=== PATIENT | female | born 1980 | race Caucasian/White ===

== ENCOUNTER 2020-06-15 20:24 | Inpatient (IN) | payer MEDICAID ==
[~2020-06-15] VITALS: Ht 152.4 cm; Wt 82.6 kg
[2020-06-15 20:40] VITALS: Ht 152.4 cm; Wt 82.6 kg
--- NOTE | 2020-06-15 21:05 | NUR ---
PT PRESENTED TO ED WITH 10/10 ABDOMINAL PAIN SINCE APPROX 3 PM TODAY. PT DENIES ANY DIARRHEA, OR CONSTIPATION. PAIN STATES SHE HAS VOMITTED MULTIPLE TIMES TODAY. PT IS NOTED TO BE TOSSING AROUND ON GURNEY AND MOANING IN PAIN. PT AWAITING MSE AT THIS TIME.
[2020-06-15 22:06] LABS: BASOPHIL % 0.1 % (0-2); PLATELET COUNT 382 x10^3mcL (130-400); RED CELL DISTRIBUTION WIDTH 20.8 % (11.5-14.5)
[2020-06-15 22:08] LABS: CALCIUM 8.9 mg/dL (8.5-10.1); CARBON DIOXIDE 24.7 mmol/L (21-32); CHLORIDE SERUM 100 mmol/L (98-107); CREATININE SERUM 0.7 mg/dL (0.6-1.0); GFR1 > 60 mL/min; GLUCOSE SERUM 139 mg/dL (74-106); POTASSIUM SERUM 3.8 mmol/L (3.5-5.1); SODIUM SERUM 136 mmol/L (136-145)
[2020-06-15 22:11] LABS: ALBUMIN 3.9 g/dL (3.4-5.0); ALKALINE PHOSPHATASE 96 U/L (46-116); ALT/SGPT 32 U/L (14-59); AST/SGOT 19 U/L (15-37); BILIRUBIN TOTAL 0.3 mg/dL (0.20-1.00); LIPASE 89 IU/L (73-393); TOTAL PROTEIN, SERUM 7.7 g/dL (6.4-8.2)
[2020-06-15 22:13] LABS: UA SPECIFIC GRAVITY >=1.030 (1.005-1.035); microscopic required? YES; urine erythrocyte 2+ (NEGATIVE)
[2020-06-15 22:57] LABS: ovalocyte/elliptocyte 2+; rbc morphology (normal/abnorm) ABNORMAL (NORMAL); tear drop cell (dacryocyte) 2+
--- NOTE | 2020-06-16 00:05 | NUR ---
PT A&OX4 WITH E/U BREATHS. NO ACD NOTED. PT MEDICATED WITH ZOSYN PER MD ORDER, SEE EMAR. PT ALSO FREDDY GOLD SWABBED AND TAKEN TO RADIOLOGY VIA [facility].
[2020-06-16] MEDS ORDERED: ATORVASTATIN CA10 M1 (00:18)
[2020-06-16] MEDS ORDERED: GLIPIZIDE XL2.5 M1 (00:18)
[2020-06-16] MEDS ORDERED: IBU400 M2 (00:18)
[2020-06-16] MEDS ORDERED: FORTAMET500 M1 (00:18)
[2020-06-16 00:29] LABS: CHOLESTEROL/HDL RATIO 4.3; MAGNESIUM 1.6 mg/dL (1.8-2.4); PHOSPHOROUS 3.9 mg/dL (2.5-4.9)
[2020-06-16 00:31] LABS: AMPHETAMINE QUAL UR NONE DETECTED (See below)
[2020-06-16 00:33] LABS: T3 TOTAL 1.24 ng/mL
[2020-06-16 00:40] LABS: FREE T4 0.86 ng/dL (0.76-1.46); FREE THYROXINE INDEX 2.8 ug/dL (1.4-4.5)
--- NOTE | 2020-06-16 01:35 | NUR ---
PT A&OX4 WITH E/U BREATHS, REPORTS INTERMITTENT 4/10 PAIN.
--- NOTE | 2020-06-16 03:05 | NUR ---
PT A&OX4 WITH E/U BREATHS, NOTED IN POC, LOW FOWLERS POSITION. PT REPORTS 4/10 PAIN ONLY UPON REPOSITIONING.
--- NOTE | 2020-06-16 03:12 | NUR ---
GAVE REPORT TO BUZZ LOVING TO ASSUME CARE OF PATIENT.
--- NOTE | 2020-06-16 03:41 | NUR ---
PT TRANSFERRED TO MED SURG VIA GURNEY BY MONICA STOUT WITHOUT INCIDENCE. PT HAD CELL PHONE PRESENT.
--- NOTE | 2020-06-16 04:00 | NUR ---
RECEIVED PT FROM ER VIA [facility] ACCOMPANIED BY THE ER STAFF. PT IS A/A/O X4. DENIES DIZZINESS AND HEADACHE. BREATH SOUNDS CLEAR. BREATHING EVEN AND UNLABORED ON ROOM AIR, SPO2 100%. DENIES CHEST PAIN AND PRESSURE. BOWEL SOUNDS ACTIVE. C/O MILD NAUSEA AND ABDOMINAL PAIN. DR. LAYTON NOTIFIED. IV INTACT ON THE RAC. MADE PT COMFORTABLE. PLACED CALL LIGHT WITH IN REACH. WILL CONTINUE TO MONITOR.
[2020-06-16 04:12] VITALS: BP 127/65
--- NOTE | 2020-06-16 05:00 | NUR ---
PT C/O ABDOMINAL PAIN WITH PAIN LEVEL OF 10/10. GAVE PT MORPHINE IVP. PT TOLERATED IT WELL. WILL CONTINUE TO MONITOR.
--- NOTE | 2020-06-16 05:45 | NUR ---
PT C/O THAT PAIN IS STILL THERE. GAVE PT NOCO PO. PT TOLERATED IT WELL. WILL CONTINUE TO MONITOR.
--- NOTE | 2020-06-16 07:00 | NUR ---
PT STILL C/O PAIN. WILL ENDORSE TO THE DAY SHIFT NURSE ACCORDINGLY.
[2020-06-16 08:20] LABS: IRON 10 ug/dL (50-170); TOTAL IRON BINDING CAPACITY 516 ug/dL (250-450)
[2020-06-16 08:26] VITALS: BP 111/59
--- NOTE | 2020-06-16 10:32 | NUR ---
PATIENT IS A 40 YEAR OLD FEMALE THAT WAS BROUGHT INTO [facility] FOR ABDOMINAL PAIN, THIS WAS DX ACUTE APPENDICITIS. PATIENT WAS PLACED NPO FOR LAPRASCOPIC APPENDECTOMY THAT WAS ORDERED THIS AM FROM DR MURILLO. PATIENT IS SYRIAC SPEAKING ALERT AND ORIENTED X4. DR MURILLO CAME IN EXPLAINED PROCEDURE. PATIENT CONSENTED PLAN FOR SX IS 1600. CHECKLIST COMPLETE. PENDING TRANSFER. PAIN NOTED THIS AM MORPHINE GIVEN AND THEN NORCO NOW FOR CONTINOUS PAIN RADIATING TO THE ABDOMEN.
[2020-06-16 13:36] VITALS: BP 113/65
--- NOTE | 2020-06-16 16:00 | NUR ---
GAVE REPORT TO CORI IN OR AT 1500. PT GIVEN NORCO PO PRN FOR PAIN 02/17. IV RAC 20G SALINE LOCKED. PATIENT WIPED WITH SURGICAL WIPES. NO C/O RESPIRATORY DISTRESS OR SOB AT THIS TIME. PT WENT DOWNSTAIRS FOR LAP PROCEDURE ACCOMPANIED BY TRANSPORTOR.
--- NOTE | 2020-06-16 16:31 | NUR ---
SPOKE TO MARICRUZ ABOUT PT UPDATE. ALL CONCERNS AND QUESTIONS ADDRESSED.
--- NOTE | 2020-06-16 19:05 | NUR ---
PT RETURNED FROM PROCEDURE. PATIENT AWAKE AND ALERT, A/OX4. VSS. ON 2L NC FOR COMFORT. NO C/O PAIN OR SOB AT THIS TIME. 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 CALL LIGHT WITHIN REACH. WILL CONTINUE TO MONITOR.
[2020-06-16 20:10] VITALS: BP 92/50
[2020-06-17] VITALS (7 sets, daily range): BP systolic 91–179; BP diastolic 52–106
--- NOTE | 2020-06-17 03:25 | NUR ---
RECEIVED PT FROM [facility]. PT SEEN LYING IN BED, HAS HER EYES CLOSED, EASILY AROUSABLE TO VERBAL STIMULI. NO C/O PAIN AND SOB. ON 2LPM/NC. DENIES ABDOMINAL PAIN/NAUSEA/VOMITING. STATED THAT SHE HAS NOT PASSED GAS YET BUT WAS ABLE TO VOID AFTER THE SURGERY. IV SITE PATENT AND INTACT. SIDE RAILS UPX2. CALL LIGHT ON REACH. WILL CONT TO MONITOR
--- NOTE | 2020-06-17 05:40 | NUR ---
PT LYING IN BED, NO C/O PAIN AND SOB. ABDOMEN IS SOFT, HAS NOT PASSED GAS YET. 3 ABDOMINAL INCISIONS ARE CDI. IV SITE PATENT AND INTACT. NOTED SOME SWELLING ON THE RIGHT FINGERS, ELEVATED W/ A PILLOW. SIDE RAILS UPX2. CALL LIGHT ON REACH. WILL CONT TO MONITOR
--- NOTE | 2020-06-17 07:18 | NUR ---
ENDORSED TO INCOMING NURSE MURILLO FOR CONTINUITY OF CARE
--- NOTE | 2020-06-17 07:44 | NUR ---
PATIENT IS A 40 YEAR OLD FEMALE THAT WAS ADMITTED TO [facility] FOR ABDOMINAL PAIN, PATIENT WAS DX WITH APPENDICITIS. THIS PROMPTED A CONSULT FROM SX DR MURILLO. DR MURILLO PERFORMED LAP GERRY WITH DRAINAGE OF PURULENT PERTNONITIS. PATIENT HAS 2 INSION LAP SITES. ON ASSESSMENT PATIENT IS ALERT AND ORIENTED X4, NO PAIN NOTED. IV IS INTACT AND PATENT RUNNING NS 100. SPOKE WITH MICHAEL MORRIS THIS AM BECAUSE NO DIET WAS PLACED BACK FOR PATIENT. PATIENT WILL HAVE A CLEAR LIQUID DIET THEN ADVANCE TO REGULAR IF TOLERATED AT LUNCH. IF PATIENT GETS UP AND TOLERATES DIET SHE WILL DISCHARGE TODAY. WILL INFORM PATIENT WHEN I ROUND AND PLAN OF CARE FOR THE DAY.
[2020-06-17] MEDS ORDERED: FLA500 PO (08:33)
[2020-06-17] MEDS ORDERED: CIPRO500 MG PO (09:15)
[2020-06-17 11:05] LABS: CALCIUM 8.2 mg/dL (8.5-10.1); CARBON DIOXIDE 24.7 mmol/L (21-32); CHLORIDE SERUM 108 mmol/L (98-107); CREATININE SERUM 0.9 mg/dL (0.6-1.0); GFR1 > 60 mL/min; GLUCOSE SERUM 197 mg/dL (74-106); SODIUM SERUM 142 mmol/L (136-145)
[2020-06-17 13:50] LABS: BASOPHIL % 0.1 % (0-2); PLATELET COUNT 315 x10^3mcL (130-400)
[2020-06-17 13:54] LABS: RED CELL DISTRIBUTION WIDTH 21.5 % (11.5-14.5)
--- NOTE | 2020-06-17 13:56 | NUR ---
PATIENT HGB REPORTED TO ME RIGHT NOW AT 6.74, WILL CALL ALEXANDRA RODRIGUEZ TO REPORT. PATIENT WILL HAVE ORDERS BEFORE SHE CAN BE DISCHARGED NOW.
[2020-06-17 14:10] LABS: rbc morphology (normal/abnorm) NORMAL (NORMAL)
--- NOTE | 2020-06-17 17:38 | NUR ---
PATIENT WILL BE PICKED UP AT 1830. PENDING B2B SALES EXECUTIVE AND HER TO EAT HER LAST TRAY, ZOSYN INFUSED. NO S/S OF DISTRESS NOTED.
== END 2020-06-17 18:35 | disposition home or self-care (01) | DRG 710 ==
LOC: ED 20:24 → MU 23:30
PROVIDERS: Emergency Medicine; Family Medicine; Surgery; ADMIT Internal Medicine; ATTEND Internal Medicine
PROC: 0DTJ4ZZ Resection of Appendix, Percutaneous Endoscopic Approach (ICD-10-PCS; principal; 2020-06-16 16:00)
DX: A41.9 Sepsis, unspecified organism (principal); K35.30 Acute appendicitis with localized peritonitis, without perforation or gangrene; E83.42 Hypomagnesemia; E11.9 Type 2 diabetes mellitus without complications; D64.9 Anemia, unspecified; E66.9 Obesity, unspecified; R65.20 Severe sepsis without septic shock; Z20.828 Contact with and (suspected) exposure to other viral communicable diseases; I10 Essential (primary) hypertension; Z68.37 Body mass index [BMI] 37.0-37.9, adult
CPT/HCPCS: 82962; 83880; 84439; 90658; 90732; G0378; J1170; J1885; J2270; J2405; J2543; J3010; J3490; J7030